=== PATIENT | female | born 1940 | race Two or more races ===

== ENCOUNTER 2021-03-30 07:01 | Emergency (ER) | payer BC, SELFPAY ==
--- NOTE | ~2021-03-30 | CT_ITS ---
EXAMINATION: CT HEAD WITHOUT CONTRAST CLINICAL INFORMATION: Headache COMPARISON: None TECHNIQUE: Contiguous axial imaging was performed from the skull base to vertex without intravenous administration of contrast. This CT examination was performed using dose optimization techniques as appropriate, variously including the following: *Automated exposure control *Adjustment of mA and/or kV according to patient size (this includes techniques or standardized protocols for targeted exams where dose is matched to indication/reason for exam; i.e. extremities or head) *Use of iterative reconstruction technique DLP: 635 mGy-cm FINDINGS: There is no evidence of acute intracranial hemorrhage or territorial infarction. There is a left frontal hypodensity likely old infarct. No abnormal mass effect or midline shift is seen. [place] to white matter differentiation is well preserved. No extra-axial fluid collections are identified. The lateral ventricles are symmetrical but enlarged. Mild prominence of cortical sulci seen. There is periventricular hypodensity in both several hemispheres without mass effect. There is a small lacunar infarct left centrum semiovale image 13/4. The osseous structures and soft tissues are normal. The mastoid air cells and visualized portions of the paranasal sinuses are well aerated. CT/CT head/brain wo con IMPRESSION: Small lacunar infarct left centrum semiovale of indeterminate age. There is no previous exam and labral for comparison. There is mesial left frontal lobe old infarct. There is no acute hemorrhage. Age-related mild volume loss with mild chronic small vessel ischemic changes.
--- NOTE | 2021-03-30 07:24 | ED.HA ---
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 Mode of arrival: ambulatory Limitations: no limitations History of Present Illness MD elicited complaint: headache Pertinent past history: other (s/p CVA in [place] on 02/28 unsure if she got tPa but notes mild residual L sided weakness) Onset (ago): day(s) (2) Onset description: gradually Location: right and temporal Severity: moderate Quality & Timing: throbbing Exacerbating factors: none Relieving factors: nothing Context: occurred at rest Associated symptoms: none Treatments prior to arrival: none Related Data Previous Rx's Medication Instructions Recorded [id number]-ihdylosminlgw-ecrp 1 tab PO Q6H PRN #20 tab 03/30/21 prednisone 40 mg PO DAILY 10 Days #20 tab 03/30/21 Allergies Allergy/AdvReac Type Severity Reaction Status Date / Time No Known Allergies Allergy Verified 03/30/21 07:37 Review of Systems Review of Systems: Constitutional : No Fever, No Chills, No Fatigue ENT/Mouth : No sore throat, No Rhinorrhea Eyes: No Eye Pain, No Swelling, No Redness Cardiovascular : No Chest Pain, No SOB, No Dyspnea on Exertion Respiratory : No Cough, No Sputum Gastrointestinal : No Nausea, No Vomiting, No Diarrhea, No abdominal Pain Genitourinary : No Dysuria, No Urinary Frequency, No Hematuria, Musculoskeletal : No joint pain, No Myalgias, No Joint Swelling Skin : No Skin Lesions, No rash Neuro : No Weakness, No Numbness, No Dizziness, positive Headache Psych : No Anxiety/Panic, No Depression Heme/Lymph: No Bruising, No Bleeding,No Lymphadenopathy Endocrine : No Polyuria, No Polydipsia All other systems reviewed and are negative [facility] Past Medical History Attestation statement: The following information was validated with the patient. Medical History CVA (cerebral vascular accident) High cholesterol HTN (hypertension) Morbid obesity Social History Social History (Updated 03/30/21 @ 07:41 by Brit Bernabe DO) Alcohol intake: never Smoking Status: Never smoker Use of substances other than those prescribed or required for medical reasons: No Advance Directives: Yes Advance Directives Information Provided: Yes Advance Directives on File: No Physical Exam Vital Signs: Vital Signs: Last Vital Signs Temp 98.0 F 03/30/21 07:33 Pulse 72 03/30/21 07:33 Resp 16 03/30/21 07:33 BP 149/63 H 03/30/21 07:33 Pulse Ox 96 03/30/21 07:33 Body Mass Index 41.0 Appearance: Alert. Oriented X3. No acute distress. Eyes: Pupils equal, round and reactive to light. ENT: Pharynx normal. Neck: Normal inspection. Neck supple. CVS: Normal heart rate and rhythm. Pulses normal. Respiratory: No respiratory distress. Breath sounds normal. Abdomen: Soft and nontender. Skin: Skin warm and dry. Normal skin color. Normal skin turgor. Extremities: legs are enlarged but no pitting edema. No calf ttp Neuro: Oriented X 3. No motor deficit. No sensory deficit. 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5 (2-11) % Eos % (Auto) 17.3 H (0-4) % Baso % (Auto) 0.1 (0-2) % Lymph # (Auto) 1.7 (1.2-4.9) X10*3/uL [place] # (Auto) 0.6 (0.1-1.2) X10*3/uL Eos # (Auto) 1.4 H (0.0-0.4) X10*3/uL Baso # (Auto) 0.0 (0.0-0.2) X10*3/uL Abs Immat Gran (auto) 0.03 (0.00-0.03) X10*3/uL Absolute Neuts (auto) 4.4 (2.0-8.3) X10*3/uL Absolute Nucleated RBC 0.000 (0.0-0.012) X10*3/uL Nucleated RBC % (auto) 0.0 (0.0-0.2) /100WBC ESR 63 H (0-20) MM/HR PT 13.0 (10.8-13.0) SEC INR 1.1 (0.9-1.1) APTT 30.4 (24.1-38.0) SEC Sodium (135-145) mmol/L Potassium (3.3-5.1) mmol/L Chloride (96-108) mmol/L Carbon Dioxide (22-29) mmol/L Anion Gap (12-20) BUN (9-16) mg/dL Creatinine (0.5-1.4) mg/dL Estim Creat Clear Calc Estimated GFR Random Glucose (60-115) mg/dL Calcium (8.4-10.2) mg/dL Magnesium (1.6-2.6) mg/dL COVID-19 (FADY) (Negative) COVID-19 Clin Com 03/30/21 03/30/21 Range/Units 08:15 08:15 WBC (4.8-10.8) X10*3/uL RBC (4.20-5.50) X10*6/uL Hgb (12.0-16.0) g/dl Hct (37-47) % MCV (80-98) fL MCH (27.0-33.0) pg MCHC (31.0-35.0) g/dl RDW (11.0-16.0) % Plt Count (160-400) X10*3/uL MPV (9.4-12.3) fL Immature Gran % (Auto) (0.0-0.4) % Neut % (Auto) (45-73) % Lymph % (Auto) (20-40) % [place] % (Auto) (2-11) % Eos % (Auto) (0-4) % Baso % (Auto) (0-2) % Lymph # (Auto) (1.2-4.9) X10*3/uL [place] # (Auto) (0.1-1.2) X10*3/uL Eos # (Auto) (0.0-0.4) X10*3/uL Baso # (Auto) (0.0-0.2) X10*3/uL Abs Immat Gran (auto) (0.00-0.03) X10*3/uL Absolute Neuts (auto) (2.0-8.3) X10*3/uL Absolute Nucleated RBC (0.0-0.012) X10*3/uL Nucleated RBC % (auto) (0.0-0.2) /100WBC ESR (0-20) MM/HR PT (10.8-13.0) SEC INR (0.9-1.1) APTT (24.1-38.0) SEC Sodium 140 (135-145) mmol/L Potassium 4.0 (3.3-5.1) mmol/L Chloride 102 (96-108) mmol/L Carbon Dioxide 30 H (22-29) mmol/L Anion Gap 12 (12-20) BUN 19 H (9-16) mg/dL Creatinine 0.84 (0.5-1.4) mg/dL Estim Creat Clear Calc 53.3 Estimated GFR > 60 Random Glucose 108 (60-115) mg/dL Calcium 9.2 (8.4-10.2) mg/dL Magnesium 1.7 (1.6-2.6) mg/dL COVID-19 (FADY) Negative (Negative) COVID-19 Clin Com See Note Discharge Plan Discharge Clinical Impression: Tension headache, Elevated erythrocyte sedimentation rate Patient Disposition: Home, Self-Care Instructions: Acute Headache (ED) Additional Instructions: return to ED for any worsening symptoms or concerns Prescriptions: New prednisone 20 mg tablet 40 mg PO DAILY 10 Days Qty: 20 RF: 0 wcdmexrweq-eonkebrogzzzh-mpyq 50-325-40 mg tablet 1 tab PO Q6H PRN (Reason: pain) Qty: 20 RF: 0 Referrals: Cain Garcia MD [Physician] - 2 days Print Language: Georgian
[2021-03-30 07:33] VITALS: BP 149/63; PULSE 72; RESP 16; TEMP 36.7; O2SAT 96; BMI 41.0
[2021-03-30] MEDS: Cyclobenzaprine HCl 10 MG TABLET PO (08:04)
[2021-03-30] MEDS: Butalb/Acetamin/Caff 50/325/40 TABLET 1 TAB PO (08:04)
[2021-03-30 08:20] LABS: MANUAL DIFF FLAG NO
[2021-03-30 08:22] LABS: Basophils Percent Auto 0.1 % (0-2); Eosinophils Absolute Auto 1.4 X10*3/uL (0.0-0.4); Eosinophils Percent Auto 17.3 % (0-4); Hematocrit 38.4 % (37-47); Hemoglobin 12.5 g/dl (12.0-16.0); Imm Gran Abs Auto 0.03 X10*3/uL (0.00-0.03); Imm Gran Pct Auto 0.4 % (0.0-0.4); Lymphocytes Absolute Auto 1.7 X10*3/uL (1.2-4.9); Lymphocytes Percent Auto 20.4 % (20-40); Mean Corpuscular HGB Conc 32.6 g/dl (31.0-35.0); Mean Corpuscular Hemoglobin 29.3 pg (27.0-33.0); Mean Corpuscular Volume 89.9 fL (80-98); Mean Platelet Volume 10.8 fL (9.4-12.3); Monocytes Absolute Auto 0.6 X10*3/uL (0.1-1.2); Monocytes Percent Auto 7.5 % (2-11); Neutrophils Absolute Auto 4.4 X10*3/uL (2.0-8.3); Neutrophils Percent Auto 54.3 % (45-73); Platelet Count 182 X10*3/uL (160-400); Red Blood Count 4.27 X10*6/uL (4.20-5.50); Red Cell Distribution Width 12.7 % (11.0-16.0); White Blood Count 8.1 X10*3/uL (4.8-10.8)
[2021-03-30 08:33] LABS: INTERNATIONAL NORM RATIO 1.1 (0.9-1.1)
[2021-03-30 08:35] LABS: COVID-19 Test Negative (Negative); Partial Thromboplastin Time 30.4 SEC (24.1-38.0)
[2021-03-30 08:58] LABS: Anion Gap 12 (12-20); Blood Urea Nitrogen 19 mg/dL (9-16); Calcium 9.2 mg/dL (8.4-10.2); Carbon Dioxide 30 mmol/L (22-29); Chloride 102 mmol/L (96-108); Creatinine Clr Calc Pharmacy 53.3; Estimated Glomerular Filt Rate > 60; Glucose Random 108 mg/dL (60-115); Magnesium 1.7 mg/dL (1.6-2.6); Sodium 140 mmol/L (135-145)
[2021-03-30 09:12] LABS: Erythrocyte Sedimentation Rate 63 MM/HR (0-20)
== END 2021-03-30 09:45 | disposition home or self-care (01) ==
PROVIDERS: Emergency Provider Emergency Medicine
DX: G44.209 Tension-type headache, unspecified, not intractable (principal); R70.0 Elevated erythrocyte sedimentation rate; Z20.822 Contact with and (suspected) exposure to COVID-19; Z86.73 Personal history of transient ischemic attack (TIA), and cerebral infarction without residual deficits
CPT/HCPCS: 36415; 70450; 80048; 83735; 85025; 85610; 85652; 85730; 87635; 99284

== ENCOUNTER → 2021-07-20 15:37 | Outpatient (BNVA) | payer MEDICARE, MEDICAID, SELFPAY | PROVIDERS: PCP Family Medicine; Referring Provider Family Medicine; Visit Provider Surgery | DX: G43.909 Migraine, unspecified, not intractable, without status migrainosus (principal); E66.01 Morbid (severe) obesity due to excess calories; E78.00 Pure hypercholesterolemia, unspecified; I10 Essential (primary) hypertension; Z86.73 Personal history of transient ischemic attack (TIA), and cerebral infarction without residual deficits; Z79.52 Long term (current) use of systemic steroids; Z79.899 Other long term (current) drug therapy | CPT/HCPCS: 99202 ==

== ENCOUNTER 2021-08-18 14:05 | Emergency (ER) | payer MEDICARE, MEDICAID, SELFPAY ==
--- NOTE | ~2021-08-18 | CT_ITS ---
EXAMINATION: CT angio head neck CLINICAL INFORMATION: Headache. Evaluate for cerebral artery aneurysm. COMPARISON: CT scan of the head 08/18/2021, 03/30/2021. TECHNIQUE: Rope Cutter images were obtained. A CT angiogram of the head and neck was performed in the arterial phase after the intravenous administration of 70 mL Omnipaque 350. Pre and delayed postcontrast images of the head were also obtained. MIP reconstructions were generated in multiple orientations at the acquisition workstation. Multiple three-dimensional surface rendered images and maximum intensity projection images were generated on a dedicated 3-D lab workstation. Arterial stenoses are measured in accordance with NASCET criteria or similar method if applicable. This CT examination was performed using dose optimization techniques as appropriate, including one or more of the following: Automated exposure control, iterative reconstruction, and adjustment of technique factors (mA and/or kVp) according to patient size (this includes techniques or standardized protocols for targeted exams where dose is matched to indication/reason for exam). Total exam dose-length product 1434 mGy-cm FINDINGS: Head: There is gliosis and encephalomalacia involving the left frontal lobe consistent with chronic changes of an old infarct within the vascular territory of the left anterior cerebral artery. There is also a tiny chronic infarct within the left postcentral gyrus. A few scattered nonspecific foci of hypoattenuation are visualized within the periventricular white matter that most likely represent a chronic manifestation of small vessel ischemia. No evidence of acute territorial infarct. No acute hemorrhage or abnormal extra-axial collection. No intracranial mass effect or midline shift. No hydrocephalus. The calvarium and skull base are intact. Mastoid air cells and middle ear cavities are well aerated. There is a retention cyst within the sphenoid sinus. Otherwise no active paranasal sinus disease. CT angiogram neck: Scattered atheromatous calcification involves the aortic arch apex. Origins of the major aortic branches are widely patent. Common carotid arteries are normal. A relatively small amount of partially calcified atheromatous plaque involves both carotid bifurcations. No stenosis of the extracranial internal carotid arteries. The cervical segments of the vertebral arteries are grossly patent. The right vertebral artery origin is not well assessed. CT angiogram head: Intracranial internal carotid arteries are patent. The intradural vertebral artery segments and basilar artery are patent. There is a small anteriorly projecting contour abnormality along the undersurface of the left supraclinoid internal carotid artery that may either represent a small aneurysm or infundibulum at the origin of left posterior communicating artery measuring 1 mm from base apex. Anterior, middle, and posterior cerebral artery complexes are normal. No intracranial large vessel occlusion. Other: Soft tissues of the neck including the thyroid gland are normal. No pathologically enlarged cervical lymph nodes. Lung apices are clear. There is no acute osseous finding. No worrisome lytic or blastic osseous lesion. Multilevel degenerative spondylosis of the cervical spine is noted. CT/CT angio head neck IMPRESSION: There are chronic cortical infarcts within the left cerebral hemisphere that have remained stable when compared to prior imaging. No evidence of acute territorial infarct or hemorrhage. There is no stenosis of the cervical carotid or vertebral arteries. Of note however the origin of the right vertebral artery is not well assessed on the basis of this examination due to the extent of streak artifact related to the high density contrast within the right subclavian vein. No intracranial large vessel occlusion. Tiny contour abnormality along the undersurface of the left supraclinoid internal carotid artery may either represent a tiny vascular infundibulum or aneurysm at the origin of the posterior communicating artery measuring no greater than 1 mm from base apex. Otherwise no intracranial aneurysm.
--- NOTE | ~2021-08-18 | CT_ITS ---
EXAMINATION: CT HEAD WITHOUT CONTRAST CLINICAL INFORMATION: Headache. COMPARISON: CT head dated from 03/30/2021. TECHNIQUE: Contiguous axial imaging was performed from the skull base to vertex without intravenous administration of contrast. This CT examination was performed using dose optimization techniques as appropriate, variously including the following: *Automated exposure control *Adjustment of mA and/or kV according to patient size (this includes techniques or standardized protocols for targeted exams where dose is matched to indication/reason for exam; i.e. extremities or head) *Use of iterative reconstruction technique DLP: 740 mGy-cm FINDINGS: Chronic infarcts in the left frontal lobe, left centrum semiovale and left parietal lobe in similar position when compared to the CT from March 2021. There is no evidence of acute intracranial hemorrhage or territorial infarction. There are subtle hypodensities in the periventricular and deep white matter, most consistent with chronic microangiopathic changes. No abnormal mass effect or midline shift is seen. No extra-axial fluid collections are identified. The ventricles are normal in size. The osseous structures and soft tissues are normal. The mastoid air cells and visualized portions of the paranasal sinuses are well aerated. CT/CT head/brain wo con IMPRESSION: No acute edematous infarction or intracranial hemorrhage. Chronic infarcts as above.
[2021-08-18 14:46] VITALS: BP 145/63; PULSE 73; RESP 20; TEMP 35.7; O2SAT 95; BMI 49.1
--- NOTE | 2021-08-18 16:37 | ED.HA ---
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 Headache started since yesterday morning, then gradually throughout the day getting worse, describes the headache is lower occipital area extending down to the neck both sides, described as dull aching pain progressively worsening, constant, now is severe 7/10, radiates down to both sides of the neck and the front of the neck, headache is worsening with moving the head and the neck, nothing improves headache, no fever, neck stiffness, photophobia, nausea, or vomiting associated with the headache. Patient had a similar headache episode in the past thought to be temporal arteritis was ruled out with temporal artery biopsy. Related Data Home Medications Medication Instructions Recorded Confirmed aspirin 81 mg chewable tablet 1 tab PO DAILY 07/20/21 atorvastatin 40 mg tablet 40 mg PO DAILY 07/20/21 bumetanide 0.5 mg tablet 0.5 mg PO DAILY 07/20/21 carvedilol 12.5 mg tablet 12.5 mg PO BID 07/20/21 cholecalciferol (vitamin D3) 50 50 mcg PO DAILY 07/20/21 mcg (2,000 unit) capsule hydroxyzine HCl 50 mg tablet 50 mg PO DAILY PRN 07/20/21 losartan 100 mg tablet 100 mg PO DAILY 07/20/21 Previous Rx's Medication Instructions Recorded xwypqcswwk-nujzikxlcjvjq-uxvjathx 1 tab PO Q6H PRN #20 tab 03/30/21 50 mg-325 mg-40 mg tablet prednisone 20 mg tablet 40 mg PO DAILY 10 Days #20 tab 03/30/21 Allergies Allergy/AdvReac Type Severity Reaction Status Date / Time No Known Allergies Allergy Verified 07/20/21 15:44 Review of Systems Review of Systems: All other systems are reviewed and are negative Constitutional: Reports as per HPI and Reports no additional constitutional complaints Eyes: Reports as per HPI and Reports no additional eye complaints Reports system reviewed and no additional complaints, except as documented Cardiovascular: Reports as per HPI and Reports no additional cardiovascular complaints Respiratory: Reports as per HPI and Reports no additional respiratory complaints Gastrointestinal: Reports as per HPI and Reports no additional gastrointestinal complaints Genitourinary: Reports no additional female genitourinary complaints Musculoskeletal: Reports no additional musculoskeletal complaints Skin/Breast: Reports system reviewed and no additional complaints, except as docu Psychiatric: Reports no additional psychiatric complaints Endocrine: Reports no additional endocrine complaints Hematologic/Lymphatic: Reports no additional hematologic/lymphatic complaints Allergic/Immunologic: Reports no additional allergic/immunologic complaints Reports system reviewed and no additional complaints, except as documented and Reports Abnormal speech present COUNTS INCLUDE 234 BEDS AT THE [facility] Past Medical History Medical History CVA (cerebral vascular accident) High cholesterol HTN (hypertension) Migraine Morbid obesity Surgical History History of cholecystectomy History of eye surgery Social History Social History Alcohol intake: never Advance Directives: Yes Advance Directives Information Provided: Yes Advance Directives on File: No Physical Exam Vital Signs: Vital Signs: Last Vital Signs Temp 98.1 F 08/18/21 19:34 Pulse 66 08/18/21 19:34 Resp 18 08/18/21 19:34 BP 150/51 H 08/18/21 19:34 Pulse Ox 97 08/18/21 19:34 Body Mass Index 49.1 Vital signs have been reviewed as appeared to be correct. Blood pressure normal. Heart rate normal. Respiration rate normal. Temperature normal. Oxygen saturation normal. Appearance: Alert. Oriented X3. No acute distress. Head: Normal external exam. Normocephalic. Atraumatic. No Kitchen signs noted. No raccoon eyes noted Eyes: PERRLA. EOMI. Conjunctiva and sclera normal. Eyelids normal. ENT: TM's Normal. Pharynx normal. Uvula midline. Moist mucous membranes. No trismus noted. No drooling noted. No muffled voice noted. Neck: Normal inspection. Neck supple. FROM. No adenopathy. Thyroid Normal. No meningeal signs. No neck mass noted. CVS: Normal heart rate and rhythm. Heart sound normal. No murmurs noted. Pulses normal throughout. Respiratory: No respiratory distress. Painless inspiration. Breath sounds normal. No wheezes/rales/rhonchi noted. Chest nontender. No accessory muscle usage noted or decreased air movement noted. Abdomen: Soft and nontender. Bowel sounds normal in all 4 quadrants. No distention noted. No organomegaly noted. No visible injury noted. Back: No CVA tenderness. Full range of motion noted. Skin: Skin warm and dry. Normal skin color. Normal skin turgor. No rashes/lesions/lacerations noted. Extremities: No lower extremity edema. Extremities exhibit normal range of motion. Extremities nontender. Neuro: Oriented X 3. Cranial nerve exam: II-XII are grossly intact No motor deficit. No sensory deficit. Reflexes normal. Course Course Course Narrative: Assessment and plan. 81-year-old female came in with headache that improved in the ED after Tylenol 650, patient had CT of the head which showed no acute SAH or intracranial pathology. Labs are unremarkable. Patient also had CT a of the head and neck which showed no cerebral aneurysm. MDM - Headache Lab Data Attestation: I reviewed the patient's lab results. Result diagrams: 08/18/21 17:10 08/18/21 17:10 Labs: Lab Results 08/18/21 08/18/21 08/18/21 Range/Units 16:53 17:10 17:10 WBC 9.2 (4.8-10.8) X10*3/uL RBC 4.63 (4.20-5.50) X10*6/uL Hgb 13.3 (12.0-16.0) g/dl Hct 40.6 (37-47) % MCV 87.7 (80-98) fL MCH 28.7 (27.0-33.0) pg MCHC 32.8 (31.0-35.0) g/dl RDW 13.0 (11.0-16.0) % Plt Count 185 (160-400) X10*3/uL MPV 10.8 (9.4-12.3) fL Immature Gran % (Auto) 0.2 (0.0-0.4) % Neut % (Auto) 61.4 (45-73) % Lymph % (Auto) 20.5 (20-40) % [place] % (Auto) 7.4 (2-11) % Eos % (Auto) 10.3 H (0-4) % Baso % (Auto) 0.2 (0-2) % Lymph # (Auto) 1.9 (1.2-4.9) X10*3/uL [place] # (Auto) 0.7 (0.1-1.2) X10*3/uL Eos # (Auto) 1.0 H (0.0-0.4) X10*3/uL Baso # (Auto) 0.0 (0.0-0.2) X10*3/uL Abs Immat Gran (auto) 0.02 (0.00-0.03) X10*3/uL Absolute Neuts (auto) 5.7 (2.0-8.3) X10*3/uL Absolute Nucleated RBC 0.000 (0.0-0.012) X10*3/uL Nucleated RBC % (auto) 0.0 (0.0-0.2) /100WBC Sodium 141 (135-145) mmol/L Potassium 4.9 D (3.3-5.1) mmol/L Chloride 103 (96-108) mmol/L Carbon Dioxide 30 H (22-29) mmol/L Anion Gap 13 (12-20) BUN 15 (9-16) mg/dL Creatinine 0.84 (0.5-1.4) mg/dL Estim Creat Clear Calc 60.7 Estimated GFR > 60 Random Glucose 113 (60-115) mg/dL Calcium 9.9 D (8.4-10.2) mg/dL Urine Color RED Urine Appearance CLOUDY Urine pH 7.0 (5.0-8.0) Ur Specific [place] 1.010 (1.005-1.025) Urine Protein NEG (NEG-TRACE) MG/DL Urine Glucose (UA) NEG (NEG) MG/DL Urine Ketones NEG (NEG) MG/DL Urine Blood 3+ H (NEG) Urine Nitrite NEG (NEG) Ur Leukocyte Esterase 3+ H (NEG) Urine RBC 76-150 H (0) /HPF Urine WBC 10-14 H (0-4) /HPF Ur Squamous Epith Cells NONE /LPF Urine Bacteria NONE /LPF Imaging Data CT scan - head: Radiologist's impression: No acute intracranial pathology CTA head and neck: Radiologist's impression: There are chronic cortical infarcts within the left cerebral hemisphere that have remained stable when compared to prior imaging. No evidence of acute territorial infarct or hemorrhage. There is no stenosis of the cervical carotid or vertebral arteries. Of note however the origin of the right vertebral artery is not well assessed on the basis of this examination due to the extent of streak artifact related to the high density contrast within the right subclavian vein. No intracranial large vessel occlusion. Tiny contour abnormality along the undersurface of the left supraclinoid internal carotid artery may either represent a tiny vascular infundibulum or aneurysm at the origin of the posterior communicating artery measuring no greater than 1 mm from base apex. Otherwise no intracranial aneurysm.? ? Discharge Plan Discharge Clinical Impression: Tension headache Patient Disposition: Home, Self-Care Instructions: General Headache (ED) Prescriptions: No Action prednisone 20 mg tablet 40 mg PO DAILY 10 Days Qty: 20 RF: 0 glkwnkqlvo-rgwtljdmssaqi-bcgf 50-325-40 mg tablet 1 tab PO Q6H PRN (Reason: pain) Qty: 20 RF: 0 cholecalciferol (vitamin D3) 50 mcg (2,000 unit) capsule 50 mcg PO DAILY RF: 0 losartan 100 mg tablet 100 mg PO DAILY RF: 0 aspirin 81 mg tablet,chewable 1 tab PO DAILY RF: 0 bumetanide 0.5 mg tablet 0.5 mg PO DAILY RF: 0 carvedilol 12.5 mg tablet 12.5 mg PO BID RF: 0 atorvastatin 40 mg tablet 40 mg PO DAILY RF: 0 hydroxyzine HCl 50 mg tablet 50 mg PO DAILY PRNRF: 0 Referrals: Sari Morejon MD [Primary Care Provider] - 2 days
[2021-08-18] MEDS: Acetaminophen 325 MG TABLET 650 MG PO (16:42)
[2021-08-18 17:05] LABS: Appearance Urine CLOUDY; Color Urine RED; Glucose Urine UA NEG (NEG); Leukocyte Esterase Urine 3+ (NEG); Nitrite Urine NEG (NEG); UACC Culture Trigger YES; Urine Blood 3+ (NEG); Urine Ketones NEG (NEG); Urine Protein NEG (NEG-TRACE)
[2021-08-18 17:14] LABS: MANUAL DIFF FLAG NO
[2021-08-18 17:15] LABS: Basophils Percent Auto 0.2 % (0-2); Eosinophils Percent Auto 10.3 % (0-4); Hematocrit 40.6 % (37-47); Hemoglobin 13.3 g/dl (12.0-16.0); Imm Gran Abs Auto 0.02 X10*3/uL (0.00-0.03); Imm Gran Pct Auto 0.2 % (0.0-0.4); Lymphocytes Absolute Auto 1.9 X10*3/uL (1.2-4.9); Lymphocytes Percent Auto 20.5 % (20-40); Mean Corpuscular HGB Conc 32.8 g/dl (31.0-35.0); Mean Corpuscular Hemoglobin 28.7 pg (27.0-33.0); Mean Corpuscular Volume 87.7 fL (80-98); Mean Platelet Volume 10.8 fL (9.4-12.3); Monocytes Absolute Auto 0.7 X10*3/uL (0.1-1.2); Monocytes Percent Auto 7.4 % (2-11); Neutrophils Absolute Auto 5.7 X10*3/uL (2.0-8.3); Neutrophils Percent Auto 61.4 % (45-73); Platelet Count 185 X10*3/uL (160-400); Red Blood Count 4.63 X10*6/uL (4.20-5.50); White Blood Count 9.2 X10*3/uL (4.8-10.8)
[2021-08-18 17:32] LABS: Anion Gap 13 (12-20); Blood Urea Nitrogen 15 mg/dL (9-16); Calcium 9.9 mg/dL (8.4-10.2); Carbon Dioxide 30 mmol/L (22-29); Chloride 103 mmol/L (96-108); Creatinine Clr Calc Pharmacy 60.7; Estimated Glomerular Filt Rate > 60; Glucose Random 113 mg/dL (60-115); Potassium 4.9 mmol/L (3.3-5.1); Sodium 141 mmol/L (135-145)
[2021-08-18] MEDS: iohexoL 350 MG/ML 100 ML INFUS..BTL IV (18:49)
[2021-08-18 19:34] VITALS: BP 150/51; PULSE 66; RESP 18; TEMP 36.7; O2SAT 97
--- NOTE | 2021-08-18 19:38 | PC.NURSE ---
This telegraphic typewriter mechanic made intro with PT. PT resting in bed quietly. PT VSS. Respirations even and unlabored, PT denies any pain at this time.
[2021-08-18 20:22] VITALS: BP 160/46; PULSE 67; RESP 18; TEMP 36.6; O2SAT 97
== END 2021-08-18 20:34 | disposition home or self-care (01) ==
PROVIDERS: Emergency Provider Emergency Medicine; PCP Family Medicine
DX: G44.209 Tension-type headache, unspecified, not intractable (principal); M54.2 Cervicalgia; I10 Essential (primary) hypertension; Z79.899 Other long term (current) drug therapy
CPT/HCPCS: 36415; 70450; 70496; 70498; 80048; 81001; 81003; 85025; 87086; 99284; Q9967